=== PATIENT | female | born 1950 | race Caucasian/White ===

== ENCOUNTER → 2022-05-03 08:10 | Outpatient (CLI) | payer MEDICARE, OTHER, SELFPAY ==
--- NOTE | ~2022-05-03 | MR_ITS ---
EXAMINATION: MR lumbar spine wo con DATE: 05/03/2022 08:41 INDICATION: Low back pain, unspecified. TECHNIQUE: Magnetic resonance imaging (MRI) of the lumbar spine was performed without intravenous con trast. Sequences included sagittal T2-weighted FSE, sagittal T2-weighted FS FSE, sagittal T1-weighted FSE, and axial T2-weighted FSE. COMPARISON: None FINDINGS: Bone alignment is normal. There is mild chronic anterior wedging of T12 and L1 vertebral marta dies. There is moderately decreased disc height at L1-L2 and L3-L4. The distal spinal cord signal int ensity is normal. The conus medullaris is at T12. There is severe atrophy of left kidney with multipl e cysts measuring up to at least 3.7 cm. The following disc levels are specifically discussed: L1-L2: The disc is bulging and has an annular fissure. There is mild bilateral facet joint osteoarthr itis. There is mild bilateral neural foraminal stenosis. There is mild central canal stenosis. L2-L3: The disc is bulging and has an annular fissure. There is mild right and moderate left facet ismael int osteoarthritis. There is moderate bilateral neural foraminal stenosis. There is mild central danny l stenosis. L3-L4: The disc is bulging and has an annular fissure. There is mild right and moderate left facet ismael int osteoarthritis. There is moderate bilateral neural foraminal stenosis. There is moderate central canal stenosis. L4-L5: The disc is bulging and has an annular fissure. There is mild right and moderate left facet ismael int osteoarthritis. There is mild right and moderate left neural foraminal stenosis. There is mild ce ntral canal stenosis. L5-S1: There is a central protrusion. There is severe bilateral facet joint osteoarthritis. There is mild bilateral neural foraminal stenosis. There is mild central canal stenosis. IMPRESSION: 1. Moderate lumbar spondylosis. Reviewed, dictated and finalized at location [facility].
== END ==
PROVIDERS: PCP Internal Medicine; Visit Provider Internal Medicine
DX: M47.896 Other spondylosis, lumbar region (principal)
CPT/HCPCS: 72148

== ENCOUNTER → 2023-08-23 09:17 | Outpatient (CLI) | payer MEDICARE, OTHER, SELFPAY ==
--- NOTE | ~2023-08-23 | MR_ITS ---
MRI of the lumbar spine Clinical History: Back pain Technique: Axial T2-weighted images, and sagittal T1-weighted, T2-weighted, and T2 fat-sat images wer e acquired. COMPARISON: 05/03/2022 Findings: There is no fracture or subluxation of the lumbar spine. Osseous alignment is unchanged. No suspicious bone marrow signal abnormality seen. There are reactive marrow signal changes about the L 3-L4 disc space due to underlying degenerative disc disease. At L1-L2 there is mild to moderate degenerative disc narrowing with diffuse disc bulge and mild facet arthropathy. No adolfo central canal stenosis or neural foraminal narrowing. At L2-L3, there is diffuse disc bulge and moderate facet arthropathy, with mild central canal stenosi s. There is mild to moderate left neural foraminal narrowing, and minimal right neural foraminal narr owing. At L3-L4, there is severe degenerative disc narrowing. Diffuse disc bulge and moderate facet arthropa thy result in severe spinal canal stenosis/thecal sac compression. There is severe right neural kathy inal narrowing, and moderate to severe left neural foraminal narrowing. At L4-L5, there is diffuse disc bulge and moderate facet arthropathy. No adolfo central canal stenosis . There is moderate to severe bilateral neural foraminal narrowing, left worse than right. At L5-S1, there is mild disc bulge and mild to moderate facet arthropathy. No central canal stenosis. There is mild left neural foraminal narrowing. Paravertebral soft tissues are unremarkable. Left kidney appears markedly atrophic, unchanged. Impression: Severe degenerative spondylosis at L3-L4. Moderate degenerative spondylosis in the remainder of the lumbar spine, as above. Reviewed, dictated and finalized at [facility]. [employer] Impression: Severe degenerative spondylosis at L3-L4. Moderate degenerative spondylosis in the remainder of the lumbar spine, as abov e.
== END ==
PROVIDERS: PCP Internal Medicine; Visit Provider Internal Medicine
DX: M51.36 Other intervertebral disc degeneration, lumbar region (principal); M47.896 Other spondylosis, lumbar region
CPT/HCPCS: 72148

== ENCOUNTER 2024-03-31 10:05 | Outpatient (CLI) | payer MEDICARE, OTHER, SELFPAY ==
--- NOTE | ~2024-03-31 | US_ITS ---
US renal BI Ordering provider: Allan Jordan, History: . abnormal labs . Comparison: None. Technique: Ultrasound bilateral kidneys. Findings: RIGHT KIDNEY: Measures 11.7x 5.4x 6.7 cm in length which is normal in size. No renal cysts. No renal mass or visualized echogenic stones. Otherwise, normal echotexture and contour. No hydronephrosis. No rmal renal cortical thickness. LEFT KIDNEY: Measures 9.1x 4.9x 5.7 cm in length which is normal in size. Cyst is seen laterally maty uring 3.6 x 3.5 x 3.8 cm.. Superior cyst is also seen measuring 2.3 x 1.7 x 2 cm. No renal mass or vi sualized echogenic stones. Otherwise, normal echotexture and contour. No hydronephrosis. Normal renal cortical thickness. BLADDER: Normal. Gallbladder stone. IMPRESSION: Cholelithiasis. Left renal cysts. Otherwise unremarkable. Reviewed, dictated and finalized at location A.
== END 2024-03-31 10:06 ==
LOC: MICIMG 10:06
PROVIDERS: PCP Internal Medicine; Visit Provider Internal Medicine
DX: R89.9 Unspecified abnormal finding in specimens from other organs, systems and tissues (principal); K80.20 Calculus of gallbladder without cholecystitis without obstruction; N28.1 Cyst of kidney, acquired
CPT/HCPCS: 76775